=== PATIENT | female | born 1975 ===

== ENCOUNTER 2017-01-25 17:44 | Emergency (ER) | payer MEDICAID ==
[2017-01-25 18:17] VITALS: TEMP 98.2
--- NOTE | 2017-01-25 19:42 | ED PDOC ---
Arrival/HPI - General Historian: Patient - General Chief Complaint: Headache Time Seen by Provider: 01/25/17 18:50 - History of Present Illness Narrative History of Present Illness (Text): 01/25/17 19:40 Patient reports two-month history of intermittent throbbing like headache to the left side of her forehead associated with nausea, photophobia, phonophobia, which became prominent after she fell and hit her head on the same area where she complains of pain. Patient reports having similar headaches in the past and were attributed to migraine headaches however she feels that the headache she has been experiencing for the past 2 months have been more intense than her prior symptoms. Patient reports taking Advil and Tylenol with relief. Otherwise : (-) thunderclap headache, (-) worse headache of life, (-) URI symptoms, (-) vomiting, (-) fever, (-) subjective neurologic symptoms. (Fredi LÓPEZ, Ashlie Wynn) Past Medical History - Provider Review Nursing Documentation Reviewed: Yes - Infectious Disease Hx of Infectious Diseases: None - Reproductive Menopause: No - HEENT Other/Comment: head trauma 2 mos ago - Psychiatric Hx Substance Use: No - Anesthesia Hx Anesthesia: No Hx Anesthesia Reactions: No Hx Malignant Hyperthermia: No Family/Social History - Physician Review Nursing Documentation Reviewed: Yes Family/Social History: No Known Family HX Smoking Status: Current Some Days Smoker Hx Alcohol Use: Yes Frequency of alcohol use: Socially Hx Substance Use: No Allergies/Home Meds Allergies/Adverse Reactions: Allergies No Known Allergies Allergy (Verified 01/25/17 18:17) Review of Systems - Review of Systems Constitutional: Normal. absent: Fatigue, Weight Change, Fevers ENT: Normal. absent: Hearing Changes, Tinnitus, Sore Throat, Sinus Congestion Respiratory: Normal. absent: SOB, Cough, Sputum Cardiovascular: Normal. absent: Chest Pain, Palpitations Musculoskeletal: Normal. absent: Arthralgias, Back Pain, Neck Pain Skin: Normal. absent: Rash, Pruritis, Skin Lesions Neurological: Normal, Headache. absent: Dizziness, Focal Weakness Physical Exam - Physical Exam Narrative Physical Exam (Text): 01/25/17 19:42 GENERAL APPEARANCE: Patient is awake, alert, oriented x 3, smiling, in no acute distress. SKIN: Warm, dry; (-) cyanosis; (-) rash. HEAD: (-) scalp swelling or tenderness, (-) temporal artery tenderness, (+) mild tenderness to the L side of the forehead with (-) edema or ecchymosis. EYES: (-) conjunctival pallor, (-) scleral icterus. ENMT: (-) sinus tenderness; mucous membranes moist. NECK: (-) tenderness, (-) stiffness, (-) meningismus, (-) lymphadenopathy. CHEST AND RESPIRATORY: (-) rales, (-) rhonchi, (-) wheezes; breath sounds equal bilaterally. HEART AND CARDIOVASCULAR: (-) irregularity; (-) murmur, (-) gallop. ABDOMEN AND GI: Soft; (-) tenderness. EXTREMITIES: (-) deformity. NEURO AND PSYCH: Mental status as above. 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 Strength and DTRs symmetric. Babinski normal bilaterally. (Ashlie Rai PA-C) Vital Signs Temp Pulse Resp BP Pulse Ox 01/25/17 18:09 98.2 F 97 H 20 118/74 97 Medical Decision Making ED Course and Treatment: 01/25/17 19:43 41 yo F who reports a two-month history of intermittent headache which she reports is related to head trauma which she [facility]. Given naprosyn and reglan po. cg (-). Patient sent to CT. CT head : negative, with no acute findings, as per Vrad report. On reevaluation patient remains awake, alert, oriented 3, no acute distress. CT results expected to the patient in great detail. Based on history, exam and diagnostic results plan will be for outpatient follow-up with PMD. Prescription provided. Patient states she fully agrees with and understands discharge instructions. States that she agrees with the plan and disposition. Verbalized and repeated discharge instructions and plan. I have given the patient opportunity to ask any additional questions. Follow up with primary care physician in 1-2 days without fail. Advised to take medication as prescribed. Return to the emergency room at any time for any new or worsening symptoms. (Ashlie Rai PA-C) EXAM: CT Head Without Intravenous Contrast CLINICAL HISTORY: 41 years old, female; Pain; Headache; Headache not specified TECHNIQUE: Axial computed tomography images of the head/brain without intravenous contrast. This CT exam was performed using one or more of the following dose reduction techniques: automated exposure control, adjustment of the mA and/or kV according to patient size, and/or use of iterative reconstruction technique. COMPARISON: No relevant prior studies available. FINDINGS: Brain: Unremarkable. No hemorrhage. No significant white matter disease. No edema. Normal johansen white matter interfaces are present. Ventricles: Unremarkable. No ventriculomegaly. Bones/joints: Unremarkable. No acute fracture. Soft tissues: Unremarkable. Sinuses: Unremarkable as visualized. No acute sinusitis. Mastoid air cells: Unremarkable as visualized. No mastoid effusion. IMPRESSION: Normal head/brain CT. Thank you for allowing us to participate in the care of your patient. 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 Disposition/Present on Arrival - Present on Arrival Any Indicators Present on Arrival: No History of DVT/PE: No History of Uncontrolled Diabetes: No Urinary Catheter: No History of Decub. Ulcer: No History Surgical Site Infection Following: None - Disposition Have Diagnosis and Disposition been Completed?: Yes Disposition Time: 19:46 Patient Plan: Discharge - Disposition Diagnosis: Headache, Head trauma Disposition: HOME/ ROUTINE Patient Problems: Current Active Problems Problem Status Onset Head trauma Acute Headache Acute Condition: GOOD Discharge Instructions (ExitCare): Head Injury (ED), Acute Headache (ED) Print Language: IRISH Additional Instructions: Thank you for letting us take care of you today. You were treated for headache, history of head injury. The emergency medical care you received today was directed at your acute symptoms. If you were prescribed any medication, please fill it and take as directed. It may take several days for your symptoms to resolve. Return to the Emergency Department if your symptoms worsen, do not improve, or if you have any other problems. Please contact the clinic in 2 days for re-evaluation and follow up. Bring any paperwork you were given at discharge with you along with any medications you are taking to your follow up visit. Our treatment cannot replace ongoing medical care by a primary care provider (PCP) outside of the emergency department. Thank you for allowing the [facility] team to be part of your care today. Prescriptions: Metoclopramide HCl [Reglan] 10 mg PO QID PRN #20 tablet PRN Reason: Headache Naproxen 500 mg PO BID #30 tab Referrals: PCP,NO [Primary Care Provider] - Follow up with primary [facility] [Outside] - Follow up with primary
[2017-01-25] MEDS ORDERED: Naproxen 550 mg Tab PO STA (19:49)
[2017-01-25 20:09] VITALS: BP 117/77; PULSE 98; RESP 18; O2SAT 98
--- NOTE | 2017-01-26 09:01 | CT ---
PROCEDURE: CT HEAD WITHOUT CONTRAST. HISTORY: headache COMPARISON: None available. TECHNIQUE: Axial computed tomography images were obtained through the head/brain without intravenous contrast. Radiation dose: Total exam DLP = 725.84 mGy-cm. This CT exam was performed using one or more of the following dose reduction techniques: Automated exposure control, adjustment of the mA and/or kV according to patient size, and/or use of iterative reconstruction technique. FINDINGS: HEMORRHAGE: No intracranial hemorrhage. BRAIN: No mass effect or edema. No atrophy or chronic microvascular ischemic changes. VENTRICLES: Unremarkable. No hydrocephalus. CALVARIUM: Unremarkable. PARANASAL SINUSES: Unremarkable as visualized. No significant inflammatory changes. MASTOID AIR CELLS: Unremarkable as visualized. No inflammatory changes. OTHER FINDINGS: None. IMPRESSION: No evidence of acute intracranial hemorrhage intracranial collection mass effect or midline shift. Preliminary report was submitted by virtual Radiology.
== END 2017-01-25 20:12 | disposition home or self-care (01) ==
LOC: ED 17:44
DX: S09.90XA Unspecified injury of head, initial encounter (principal); W01.0XXA Fall on same level from slipping, tripping and stumbling without subsequent striking against object, initial encounter; Y92.89 Other specified places as the place of occurrence of the external cause

== ENCOUNTER 2017-04-23 17:52 | Inpatient (IN) | payer MEDICAID ==
[2017-04-23] MEDS ORDERED: Morphine 4 mg/ml ISec IVP STA (19:09)
[2017-04-23] MEDS ORDERED: Sodium Chloride 0.9% 1,000 ML IV STA (19:09)
[2017-04-23 19:57] LABS: URINE BILIRUBIN NEGATIVE (NEGATIVE); URINE BLOOD TRACE-LYSED (NEGATIVE); URINE GLUCOSE (UA) NEGATIVE (NEGATIVE); URINE LEUKOCYTE ESTERASE NEGATIVE Leu/uL (NEGATIVE); URINE NITRATE NEGATIVE (NEGATIVE); URINE PROTEIN TRACE mg/dL (<30 mg/dL); URINE UROBILINOGEN 0.2 E.U./dL (<1 E.U./dL)
[2017-04-23 19:58] LABS: BASO # 0.04 K/mm3 (0.0-2.0); BASO % 0.2 % (0.0-3.0); EOS # 0.1 (0.0-0.7); EOS % 0.6 % (1.5-5.0); GRAN # 14.09 (1.4-6.5); GRAN % 79.5 % (50.0-68.0); LYMPH # 2.3 (1.2-3.4); LYMPH % 12.7 % (22.0-35.0); MEAN CELL VOLUME 89.1 fL (80.0-105.0); MEAN CORPUSCULAR HEMOGLOBIN 30.7 pg (25.0-35.0); MEAN CORPUSCULAR HGB CONC 34.5 g/dl (31.0-37.0); MEAN PLATELET VOLUME 8.8 fl (7.0-11.0); MONO # 1.2 (0.1-0.6); PLATELET COUNT 316 10^3/uL (120.0-450.0); RBC 4.23 10^6/uL (3.5-6.1); RED CELL DISTRIBUTION WIDTH 13.7 % (11.5-14.5); WHITE BLOOD COUNT 17.7 10^3/ul (4.5-11.0)
[2017-04-23 20:01] LABS: URINE APPEARANCE SL CLOUDY (CLEAR); URINE COLOR YELLOW (YELLOW)
[2017-04-23 20:01] LABS: ALB/GLOB RATIO 1.2 (1.1-1.8); ALBUMIN 4.2 g/dL (3.0-4.8); ALT/SGPT 30 U/L (7-56); AST/SGOT 16 U/L (15-39); BLOOD UREA NITROGEN 9 mg/dL (7-21); CALCIUM 9.3 mg/dL (8.4-10.5); GFR AFRICAN-AMERICAN > 60; GFR NON-AFRICAN AMERICAN > 60; LIPASE 40 U/L (23-300)
[2017-04-23 20:02] LABS: INR 1.14 (0.93-1.08); PARTIAL THROMBOPLASTIN TIME 31.7 Seconds (23.7-30.8); PROTHROMBIN TIME 12.3 Seconds (9.9-11.8)
[2017-04-23 20:13] LABS: URINE BACTERIA MANY (NEG); URINE RBC 0 - 2 /hpf (0-2)
--- NOTE | 2017-04-23 20:26 | ED PDOC ---
Arrival/HPI - General Historian: Patient - History of Present Illness Time/Duration: Other (4 days) Symptom Course: Unchanged Quality: Other Context: Home - General Chief Complaint: Abdominal Pain Time Seen by Provider: 04/23/17 18:33 - History of Present Illness Narrative History of Present Illness (Text): 04/23/17 20:18 A 41 year old female presents to the emergency department complaining of intermittent diffuse abdominal pain for 4 days. Patient describes the pain similar to "contractions". She initially believed it was gas and took sonny seltzer, with no relief. Patient notes nausea, states she is unable to tolerate any PO intake. She reports non-bloody diarrhea since yesterday and approximately 6 episodes throughout today. Patient notes tactile fever and chills last night but denies any vomiting, urinary complaints, back pain, chest pain, shortness of breath or any other complaints. Patient states she has not experienced similar symptoms before. Patient denies any recent travel, sick contact or antibiotic use. Denies history of abdominal surgeries, endoscopies or colonoscopies. PMD: None (Fredi LÓPEZ,Ashlie Wynn) Past Medical History - Provider Review Nursing Documentation Reviewed: Yes - Infectious Disease Hx of Infectious Diseases: None - HEENT Other/Comment: head trauma 2 mos ago - Psychiatric Hx Substance Use: No - Anesthesia Hx Anesthesia: No Hx Anesthesia Reactions: No Hx Malignant Hyperthermia: No Family/Social History - Physician Review Nursing Documentation Reviewed: Yes Family/Social History: No Known Family HX Smoking Status: Current Some Days Smoker Hx Alcohol Use: Yes Hx Substance Use: No Allergies/Home Meds Allergies/Adverse Reactions: Allergies No Known Allergies Allergy (Verified 01/25/17 18:17) Home Medications: Home Meds Medication Instructions Recorded Confirmed No Known Home Med 04/23/17 04/23/17 Review of Systems - Physician Review All systems were reviewed & negative as marked: Yes - Review of Systems Constitutional: Fevers, Night Sweats Respiratory: absent: SOB Cardiovascular: absent: Chest Pain Gastrointestinal: Abdominal Pain, Diarrhea, Nausea. absent: Vomiting Genitourinary Female: absent: Dysuria, Frequency, Hematuria, Urine Output Changes Musculoskeletal: absent: Back Pain Physical Exam Vital Signs Reviewed: Yes Temperature: Afebrile Blood Pressure: Normal Pulse: Tachycardic Respiratory Rate: Normal Appearance: Positive for: Well-Appearing, Non-Toxic, Comfortable Pain Distress: Moderate Mental Status: Positive for: Alert and Oriented X 3 - Systems Exam Head: Present: Atraumatic, Normocephalic Pupils: Present: PERRL Extroacular Muscles: Present: EOMI Conjunctiva: Present: Normal Mouth: Present: Dry Neck: Present: Normal Range of Motion Respiratory/Chest: Present: Clear to Auscultation, Good Air Exchange. No: Respiratory Distress, Accessory Muscle Use Cardiovascular: Present: Regular Rate and Rhythm, Normal S1, S2. No: Murmurs Abdomen: Present: Tenderness (Moderate diffuse tenderness to palpation), Normal Bowel Sounds. No: Distention, Peritoneal Signs Back: Present: Normal Inspection Upper Extremity: Present: Normal Inspection. No: Cyanosis, Edema Lower Extremity: Present: Normal Inspection. No: Edema Neurological: Present: GCS=15, CN II-XII Intact, Speech Normal Skin: Present: Warm, Dry, Normal Color. No: Rashes Psychiatric: Present: Alert, Oriented x 3, Normal Insight, Normal Concentration Medical Decision Making Re-evaluation Time: 22:00 Reassessment Condition: Re-examined, Improving,but remains with symptoms (On re- evaluation, pt is laying in bed in no acute distress, reports improvement of pain, however pain is still present. On exam, abdomen is soft with mild diffuse abdominal tenderness, no rebound or guarding. Labs reviewed. CT results still pending. ) - Lab Interpretations I have reviewed the lab results: Yes (WBC is noted to be 17.7) ED Course and Treatment: 04/23/17 20:18 Impression: A 41 year old female with diffuse abdominal pain. Patient notes associated tactile fever, chills, nausea and diarrhea. Plan: -- Abdomen and pelvis CT -- Labs -- Urine culture and Urinalysis -- Pepcid, Morphine, Zofran and IV fluids -- Reassess and disposition Progress Notes: 04/23/17 23:30 CT results reviewed, shows +acute diverticulitis. Lab and CT results d/w the pt in great detail. Notified of need for inpt admission for IV antibiotics, which the pt agrees to, diagnosis explained to the pt. Cipro and flagyl IV ordered. Call placed to Dr Leyva, agrees with plan for inpt admission to the hospitalist. (Fredi LÓPEZ,Ashlie Wynn) 04/24/17 00:09 I was available for consultation during PA evaluation. The chart reviewed by me , and I agree with disposition. The documented history was done by the physician human performance professor. The documented physical exam was done by physician human performance professor. The documented procedures were done by physician human performance professor. (Vince Melo) - Lab Interpretations Lab Results: 04/23/17 19:46 04/23/17 19:46 Lab Results 04/23/17 19:46: Sodium 136, Potassium 4.0, Chloride 101, Carbon Dioxide 23, Anion Gap 16, BUN 9, Creatinine 0.7, Est GFR ( Amer) > 60, Est GFR (Non- Af Amer) > 60, Random Glucose 95, Calcium 9.3, Total Bilirubin 0.7, AST 16, ALT 30, Alkaline Phosphatase 68, Total Protein 7.7, Albumin 4.2, Globulin 3.6, Albumin/Globulin Ratio 1.2, Lipase 40 04/23/17 19:46: PT 12.3 H, INR 1.14 H, APTT 31.7 H 04/23/17 19:46: WBC 17.7 H, RBC 4.23, Hgb 13.0, Hct 37.7, MCV 89.1, MCH 30.7, MCHC 34.5, RDW 13.7, Plt Count 316, MPV 8.8, Gran % 79.5 H, Lymph % (Auto) 12.7 L, [place] % (Auto) 7.0 H, Eos % (Auto) 0.6 L, Baso % (Auto) 0.2, Gran # 14.09 H, Lymph # 2.3, [place] # 1.2 H, Eos # 0.1, Baso # 0.04 04/23/17 19:25: Urine Color Yellow, Urine Appearance Sl cloudy, Urine pH 7.0, Ur Specific [place] 1.020, Urine Protein Trace H, Urine Glucose (UA) Negative, Urine Ketones Trace H, Urine Blood Trace-lysed H, Urine Nitrate Negative, Urine Bilirubin Negative, Urine Urobilinogen 0.2, Ur Leukocyte Esterase Negative, Urine RBC 0 - 2, Urine WBC 1 - 3, Ur Epithelial Cells 10 - 12, Urine Bacteria Many - RAD Interpretation Narrative RAD Interpretations (Text): 04/23/17 23:51 CT ABDOMEN/PELVIS W/ IV CONTRAST: FINDINGS: Lower thorax: Mild atelectasis/scarring. ABDOMEN: Liver: Fatty infiltration. Gallbladder and bile ducts: Cholecystectomy. No ductal dilation. Pancreas: No ductal dilation. No mass. Spleen: No splenomegaly. Adrenals: No mass. Kidneys and ureters: RIGHT renal cyst. 1.2 x 1.3 x 1.3 cm lesion within RIGHT kidney, indeterminate by CT criteria. Few too small to characterize lesions within kidneys. No hydronephrosis. Stomach and bowel: Scattered diverticula within colon. Severe mural thickening short segment of proximal sigmoid colon. Moderate stranding within adjacent fat. No obstruction. Appendix: No findings to suggest acute appendicitis. PELVIS: Bladder: Unremarkable. Reproductive: 1.9 x 1.5 x 1.5 cm hypodense lesion within RIGHT ovary. 1.6 x 1.6 x 1.5 cm hypodense lesion within LEFT ovary. ABDOMEN and PELVIS: Intraperitoneal space: No significant fluid collection. No free air. Bones/joints: Degenerative changes of lower lumbar spine. No acute fracture. Soft tissues: Unremarkable. Vasculature: Mild atherosclerotic disease. No aneurysm. Lymph nodes: Several subcentimeter short axis paraaortic lymph nodes. IMPRESSION: 1. Findings compatible with acute diverticulitis of sigmoid colon. Recommend endoscopy following resolution. 2. Probable ovarian cysts. Consider ultrasound. 3. Kidney lesion, indeterminate. Recommend nonemergent ultrasound or MRI. 4. Incidental/non-acute findings are described above. (Fredi LÓPEZ,Ashlie Wynn) Radiology Orders: 04/23/17 19:11 ABD & PELVIS IV CONTRAST ONLY [CT] Stat - Medication Orders Current Medication Orders: Ciprofloxacin (Cipro 400mg/200ml Dsw) 400 mg in 200 mls @ 133.3 mls/hr IVPB STAT STA PRN Reason: Protocol Stop: 04/24/17 01:28 Metronidazole (Flagyl) 500 mg in 100 mls @ 100 mls/hr IVPB STAT STA PRN Reason: Protocol Stop: 04/24/17 00:57 Discontinued Medications Famotidine (Pepcid) 20 mg IVP STAT STA Stop: 04/23/17 19:10 Last Admin: 04/23/17 19:44 Dose: 20 mg Sodium Chloride (Sodium Chloride 0.9%) 1,000 mls @ 1,000 mls/hr IV .Q1H STA Stop: 04/23/17 20:08 Last Admin: 04/23/17 19:44 Dose: 1,000 mls/hr Iohexol (Omnipaque 350 100 Ml) Confirm Administered Dose 350 mg .ROUTE .STK-MED ONE Stop: 04/23/17 22:27 Morphine Sulfate (Morphine) 4 mg IVP STAT STA Stop: 04/23/17 19:10 Last Admin: 04/23/17 19:55 Dose: 4 mg Ondansetron HCl (Zofran Inj) 4 mg IVP STAT STA Stop: 04/23/17 19:10 Last Admin: 04/23/17 19:43 Dose: 4 mg - PA / BOTTLE CASER / Resident Statement MD/DO has reviewed & agrees with the documentation as recorded. - Scribe Statement The provider has reviewed the documentation as recorded by the Scribe - Scribe Statement Asuncion Hayden Provider Scribe Attestation: All medical record entries made by the Scribe were at my direction and personally dictated by me. I have reviewed the chart and agree that the record accurately reflects my personal performance of the history, physical exam, medical decision making, and the department course for this patient. I have also personally directed, reviewed, and agree with the discharge instructions and disposition. (Fredi LÓPEZ,Ashlie Wynn) Disposition/Present on Arrival - Present on Arrival Any Indicators Present on Arrival: No History of DVT/PE: No History of Uncontrolled Diabetes: No Urinary Catheter: No History of Decub. Ulcer: No History Surgical Site Infection Following: None - Disposition Have Diagnosis and Disposition been Completed?: Yes Disposition Time: 23:30 Patient Plan: Admission - Disposition Diagnosis: Acute diverticulitis Disposition: HOSPITALIZED Patient Problems: Current Active Problems Problem Status Onset Acute diverticulitis Acute Condition: STABLE Forms: [id number] (Arabic)
[2017-04-23] MEDS ORDERED: Iohexol 350 MG/100 ML VIAL ONE (22:26)
--- NOTE | 2017-04-23 23:46 | CT ---
EXAM: CT Abdomen and Pelvis With Intravenous Contrast CLINICAL HISTORY: 41 years old, female; Pain; Abdominal pain; Generalized; Additional info: Diffuse pain with diarrhea TECHNIQUE: Axial computed tomography images of the abdomen and pelvis with intravenous contrast. This CT exam was performed using one or more of the following dose reduction techniques: automated exposure control, adjustment of the mA and/or kV according to patient size, and/or use of iterative reconstruction technique. Coronal and sagittal reformatted images were created and reviewed. CONTRAST: 95 mL of OMNI 350 administered intravenously. COMPARISON: No relevant prior studies available. FINDINGS: Lower thorax: Mild atelectasis/scarring. ABDOMEN: Liver: Fatty infiltration. Gallbladder and bile ducts: Cholecystectomy. No ductal dilation. Pancreas: No ductal dilation. No mass. Spleen: No splenomegaly. Adrenals: No mass. Kidneys and ureters: RIGHT renal cyst. 1.2 x 1.3 x 1.3 cm lesion within RIGHT kidney, indeterminate by CT criteria. Few too small to characterize lesions within kidneys. No hydronephrosis. Stomach and bowel: Scattered diverticula within colon. Severe mural thickening short segment of proximal sigmoid colon. Moderate stranding within adjacent fat. No obstruction. Appendix: No findings to suggest acute appendicitis. PELVIS: Bladder: Unremarkable. Reproductive: 1.9 x 1.5 x 1.5 cm hypodense lesion within RIGHT ovary. 1.6 x 1.6 x 1.5 cm hypodense lesion within LEFT ovary. ABDOMEN and PELVIS: Intraperitoneal space: No significant fluid collection. No free air. Bones/joints: Degenerative changes of lower lumbar spine. No acute fracture. Soft tissues: Unremarkable. Vasculature: Mild atherosclerotic disease. No aneurysm. Lymph nodes: Several subcentimeter short axis paraaortic lymph nodes. IMPRESSION: 1. Findings compatible with acute diverticulitis of sigmoid colon. Recommend endoscopy following resolution. 2. Probable ovarian cysts. Consider ultrasound. 3. Kidney lesion, indeterminate. Recommend nonemergent ultrasound or MRI. 4. Incidental/non-acute findings are described above.
[2017-04-23] MEDS ORDERED: metroNIDAZOLE IV 500 mg/100 ml 500 MG/100 ML BAG IVPB STA (23:58)
[2017-04-23] MEDS ORDERED: Ciprofloxacin 400mg/200ml D5W 400 MG/200 ML BAG IVPB STA (23:58)
[2017-04-24] MEDS ORDERED: Morphine 2 mg/ml ISec IVP PRN (00:22)
[2017-04-24] MEDS ORDERED: Morphine 4 mg/ml ISec IVP PRN (00:22)
--- NOTE | 2017-04-24 00:41 | CP.PCM.HP ---
<PAULSAMANTA - Last Filed: 04/24/17 01:02> History of Present Illness - History of Present Illness History of Present Illness: CC: Diffuse Abdominal Pain HPI: Mrs. Guzman is a 41 year old female with a past medical history significant for cholecystectomy who presented to the ED complaining of constant diffuse abdominal pain since Thursday afternoon. Patient describes the pain as being similar to "contractions" and reports that it does not radiate. She rates it as a 10/10 on pain scale and reports no alleviating or aggravating factors. She initially believed it was gas and took one sonny seltzer with no relief. Patient notes nausea and states that while she can tolerate PO intake, she has lost her appetite due to the pain. She reports non-bloody diarrhea since yesterday and approximately 6 episodes throughout today. Patient also notes one episode of subjective fever and chills last night. A CT abd/pelvis in the ED showed diverticulitis of the sigmoid colon and ovarian cysts. Currently, patient states that her pain is unchanged in quality or intensity and writhes in pain during examination. She denies any headache, dizziness, changes in vision, chest pain, SOB, vomiting, constipation, urinary symptoms, or any other complaints at this time. PMH: "Issues with gallbladder" PSH: Cholecystectomy approx. 10 years ago Family History: DM in "almost everyone"; none other reported Social History: Current smoker with 20 year pack history, reports social alcohol and occasional marijuana use LMP: April 09, 2017 Allergies: NKDA Home Meds: Advil PRN Present on Admission - Present on Admission Any Indicators Present on Admission: No Review of Systems - Review of Systems Review of Systems: Please refer to HPI Past Patient History - Infectious Disease Hx of Infectious Diseases: None - Past Social History Smoking Status: Current Some Days Smoker - HEENT Other/Comment: head trauma 2 mos ago - PSYCHIATRIC Hx Substance Use: No - SURGICAL HISTORY Hx Surgeries: No - ANESTHESIA Hx Anesthesia: No Hx Anesthesia Reactions: No Hx Malignant Hyperthermia: No Meds Allergies/Adverse Reactions: Allergies Allergy/AdvReac Type Severity Reaction Status Date / Time No Known Allergies Allergy Verified 01/25/17 18:17 Physical Exam - Constitutional Appears: In Acute Distress - Head Exam Head Exam: NORMAL INSPECTION, NORMOCEPHALIC - Eye Exam Eye Exam: EOMI, Normal appearance - ENT Exam ENT Exam: Mucous Membranes Moist, Normal Exam - Neck Exam Neck exam: Positive for: Full Rom. Negative for: Tenderness - Respiratory Exam Respiratory Exam: Clear to Auscultation Bilateral, NORMAL BREATHING PATTERN. absent: Rales, Rhonchi, Wheezes, Respiratory Distress - Cardiovascular Exam Cardiovascular Exam: Tachycardia, REGULAR RHYTHM, +S1, +S2 - GI/Abdominal Exam GI & Abdominal Exam: Normal Bowel Sounds, Tenderness. absent: Distended, Firm, Guarding Additional comments: Diffuse pain in all lower quadrants - Extremities Exam Extremities exam: Positive for: normal capillary refill, pedal pulses present. Negative for: calf tenderness, pedal edema - Neurological Exam Neurological exam: Alert, Oriented x3 - Psychiatric Exam Psychiatric exam: Normal Affect, Normal Mood - Skin Skin Exam: Dry, Intact, Normal Color, Warm Results - Vital Signs Recent Vital Signs: Last Vital Signs Temp 99.3 F 04/23/17 18:12 Pulse 112 H 04/23/17 18:12 Resp 20 04/23/17 18:12 BP 131/84 04/23/17 18:12 Pulse Ox 96 04/23/17 18:12 - Labs Result Diagrams: 04/23/17 19:46 04/23/17 19:46 Assessment & Plan - Assessment and Plan (Free Text) Assessment: 41 year old female with a past medical history significant for cholecystectomy who presented to the ED complaining of constant diffuse abdominal pain since Thursday afternoon. Plan: 1. Diverticulitis of Sigmoid Colon -CT Abd/Pelivs showed diverticulitis of sigmoid colon -Tachycardia (112) and Leukocytosis (17.7); currently afebrile and normotensive -started on cipro/flagyl -IVF: NS at 100mls/hr -Morphine 2mg Q3H PRN for moderate pain -Morphine 4mg Q3H PRN for severe pain -NPO diet overnight; will advance as tolerated with anticipation for CLD later in AM 2. GI/DVT Prophylaxis -Protonix/Heparin Patient seen and case discussed with attending, Dr. Leyva. - Date & Time Date: 04/24/17 Time: 12:35 <Robbie Leyva - Last Filed: 04/24/17 06:52> Results - Vital Signs Recent Vital Signs: Last Vital Signs Temp 98.3 F 04/24/17 02:17 Pulse 96 H 04/24/17 02:17 Resp 20 04/24/17 02:17 BP 123/74 04/24/17 02:17 Pulse Ox 99 04/24/17 00:20 - Labs Result Diagrams: 04/23/17 19:46 04/23/17 19:46 Attending/Attestation - Attestation I have personally seen and examined this patient.: Yes I have fully participated in the care of the patient.: Yes I have reviewed all pertinent clinical information: Yes
[2017-04-24] MEDS: Sodium Chloride 0.9% 1,000 ML IV SCH ×2 (02:26→21:34)
[2017-04-24 03:43] VITALS: RESP 20
[2017-04-24] MEDS: metroNIDAZOLE IV 500 mg/100 ml 500 MG/100 ML BAG IVPB SCH ×3 (05:50→21:48)
[2017-04-24] MEDS: Pantoprazole 20 mg EC Tab PO SCH (05:55)
[2017-04-24 07:39] LABS: BASO # 0.03 K/mm3 (0.0-2.0); BASO % 0.2 % (0.0-3.0); EOS # 0.1 (0.0-0.7); EOS % 0.5 % (1.5-5.0); GRAN # 10.92 (1.4-6.5); GRAN % 78.7 % (50.0-68.0); HEMOGLOBIN 11.8 gm/dL (12.0-16.0); LYMPH % 14.3 % (22.0-35.0); MEAN CELL VOLUME 88.7 fL (80.0-105.0); MEAN CORPUSCULAR HEMOGLOBIN 30.2 pg (25.0-35.0); MEAN PLATELET VOLUME 9.2 fl (7.0-11.0); MONO # 0.9 (0.1-0.6); MONO % 6.3 % (1.0-6.0); PLATELET COUNT 321 10^3/uL (120.0-450.0); RBC 3.91 10^6/uL (3.5-6.1); RED CELL DISTRIBUTION WIDTH 13.8 % (11.5-14.5); WHITE BLOOD COUNT 13.9 10^3/ul (4.5-11.0)
[2017-04-24 08:00] LABS: BLOOD UREA NITROGEN 7 mg/dL (7-21); CALCIUM 8.8 mg/dL (8.4-10.5); GFR AFRICAN-AMERICAN > 60; GFR NON-AFRICAN AMERICAN > 60
[2017-04-24] MEDS: levoFLOXacin 500 mg in D5W 500 MG/100 ML BAG IVPB SCH (11:46)
[2017-04-24] MEDS ORDERED: Potassium Chloride 40 mEq/30 ml LIQ UD PO ONE ×2 (16:10→21:00)
[2017-04-25] MEDS: metroNIDAZOLE IV 500 mg/100 ml 500 MG/100 ML BAG IVPB SCH (05:57)
[2017-04-25] MEDS: Pantoprazole 20 mg EC Tab PO SCH (05:57)
[2017-04-25 07:52] LABS: HEMOGLOBIN 10.2 gm/dL (12.0-16.0); MEAN CORPUSCULAR HGB CONC 33.3 g/dl (31.0-37.0); MEAN PLATELET VOLUME 8.8 fl (7.0-11.0); PLATELET COUNT 274 10^3/uL (120.0-450.0); RED CELL DISTRIBUTION WIDTH 13.7 % (11.5-14.5); WHITE BLOOD COUNT 7.8 10^3/ul (4.5-11.0)
[2017-04-25 08:15] VITALS: BP 133/86; PULSE 76; TEMP 97.7; O2SAT 97
[2017-04-25 09:10] LABS: NEUTROPHIL 68 % (50.0-70.0)
[2017-04-25 09:11] LABS: LYMPHOCYTE 30 % (22.0-35.0); MONOCYTE 2 % (1.0-6.0); PLATELET ESTIMATE NORMAL (NORMAL)
[2017-04-25] MEDS: levoFLOXacin 500 mg in D5W 500 MG/100 ML BAG IVPB SCH (09:33)
[2017-04-25] MEDS: Sodium Chloride 0.9% 1,000 ML IV SCH (09:35)
[2017-04-25 09:51] LABS: BLOOD UREA NITROGEN 9 mg/dL (7-21); CALCIUM 8.6 mg/dL (8.4-10.5); GFR AFRICAN-AMERICAN > 60; GFR NON-AFRICAN AMERICAN > 60
--- NOTE | 2017-04-25 15:59 | CP.PCM.DIS ---
<Rajeev Stanton - Last Filed: 04/25/17 15:54> Provider - Provider Date of Admission: 04/24/17 00:06 Attending physician: Jeevan Fox MD Primary care physician: None. Plan to follow up with [facility] in [place] Time Spent in preparation of Discharge (in minutes): 30 Diagnosis - Discharge Diagnosis (1) Acute diverticulitis Status: Acute Hospital Course - Lab Results Lab Results: Most Recent Lab Values WBC 7.8 10^3/ul (4.5-11.0) D 04/25/17 07:42 RBC 3.40 10^6/uL (3.5-6.1) L 04/25/17 07:42 Hgb 10.2 gm/dL (12.0-16.0) L 04/25/17 07:42 Hct 30.6 % (36.0-48.0) L 04/25/17 07:42 MCV 90.0 fL (80.0-105.0) 04/25/17 07:42 MCH 30.0 pg (25.0-35.0) 04/25/17 07:42 MCHC 33.3 g/dl (31.0-37.0) 04/25/17 07:42 RDW 13.7 % (11.5-14.5) 04/25/17 07:42 Plt Count 274 10^3/uL (120.0-450.0) 04/25/17 07:42 MPV 8.8 fl (7.0-11.0) 04/25/17 07:42 Gran % 78.7 % (50.0-68.0) H 04/24/17 07:00 Lymph % (Auto) 14.3 % (22.0-35.0) L 04/24/17 07:00 Nicholas % (Auto) 6.3 % (1.0-6.0) H 04/24/17 07:00 Eos % (Auto) 0.5 % (1.5-5.0) L 04/24/17 07:00 Baso % (Auto) 0.2 % (0.0-3.0) 04/24/17 07:00 Gran # 10.92 (1.4-6.5) H 04/24/17 07:00 Lymph # 2.0 (1.2-3.4) 04/24/17 07:00 Nicholas # 0.9 (0.1-0.6) H 04/24/17 07:00 Eos # 0.1 (0.0-0.7) 04/24/17 07:00 Baso # 0.03 K/mm3 (0.0-2.0) 04/24/17 07:00 Neutrophils % (Manual) 68 % (50.0-70.0) 04/25/17 07:42 Lymphocytes % (Manual) 30 % (22.0-35.0) 04/25/17 07:42 Monocytes % (Manual) 2 % (1.0-6.0) 04/25/17 07:42 Platelet Evaluation Normal (NORMAL) 04/25/17 07:42 PT 12.3 Seconds (9.9-11.8) H 04/23/17 19:46 INR 1.14 (0.93-1.08) H 04/23/17 19:46 APTT 31.7 Seconds (23.7-30.8) H 04/23/17 19:46 Sodium 139 mmol/L (132-148) 04/25/17 07:42 Potassium 4.0 mmol/L (3.6-5.0) 04/25/17 07:42 Chloride 106 mmol/L (98-107) 04/25/17 07:42 Carbon Dioxide 23 mmol/L (21-33) 04/25/17 07:42 Anion Gap 14 (10-20) 04/25/17 07:42 BUN 9 mg/dL (7-21) 04/25/17 07:42 Creatinine 0.6 mg/dL (0.5-1.4) 04/25/17 07:42 Est GFR ( Amer) > 60 04/25/17 07:42 Est GFR (Non-Af Amer) > 60 04/25/17 07:42 Random Glucose 98 mg/dL (70-110) 04/25/17 07:42 Calcium 8.6 mg/dL (8.4-10.5) 04/25/17 07:42 Total Bilirubin 0.7 mg/dL (0.2-1.3) 04/23/17 19:46 AST 16 U/L (15-39) 04/23/17 19:46 ALT 30 U/L (7-56) 04/23/17 19:46 Alkaline Phosphatase 68 U/L (38-133) 04/23/17 19:46 Total Protein 7.7 g/dL (5.8-8.3) 04/23/17 19:46 Albumin 4.2 g/dL (3.0-4.8) 04/23/17 19:46 Globulin 3.6 gm/dL 04/23/17 19:46 Albumin/Globulin Ratio 1.2 (1.1-1.8) 04/23/17 19:46 Lipase 40 U/L (23-300) 04/23/17 19:46 Urine Color Yellow (YELLOW) 04/23/17 19:25 Urine Appearance Sl cloudy (CLEAR) 04/23/17 19:25 Urine pH 7.0 (4.7-8.0) 04/23/17 19:25 Ur Specific [place] 1.020 (1.005-1.035) 04/23/17 19:25 Urine Protein Trace mg/dL (<30 mg/dL) H 04/23/17 19:25 Urine Glucose (UA) Negative mg/dL (NEGATIVE) 04/23/17 19:25 Urine Ketones Trace mg/dL (NEGATIVE) H 04/23/17 19:25 Urine Blood Trace-lysed (NEGATIVE) H 04/23/17 19:25 Urine Nitrate Negative (NEGATIVE) 04/23/17 19:25 Urine Bilirubin Negative (NEGATIVE) 04/23/17 19:25 Urine Urobilinogen 0.2 E.U./dL (<1 E.U./dL) 04/23/17 19:25 Ur Leukocyte Esterase Negative Memo/uL (NEGATIVE) 04/23/17 19:25 Urine RBC 0 - 2 /hpf (0-2) 04/23/17 19:25 Urine WBC 1 - 3 /hpf (0-6) 04/23/17 19:25 Ur Epithelial Cells 10 - 12 /hpf (0-5) 04/23/17 19:25 Urine Bacteria Many (NEG) 04/23/17 19:25 - Hospital Course Hospital Course: The patient is a 41 year old female with a past medical history significant for cholecystectomy, presented to the ED complaining of constant diffuse abdominal pain for 3 days. She described the pain as being similar to "contractions" and reported that it does not radiate. Associated symptoms were nausea, non-bloody diarrhea, loss of appetite, subjective fever and chills. A CT abd/pelvis in the ED showed diverticulitis of the sigmoid colon and ovarian cysts. She was admitted to the floors and throughout her stay she was placed on Flagyl and levofloxacin, and morphine PRN for pain. Patient initially NPO with subsequential toleration of liquid and then regular diet. Patient was given information regarding follow up with [facility] in [place] and educated on the importance of appropriate follow up and compliance with prescribed medication. Patient remained afebrile and was noted to have positive response to antibiotic therapy. Patient was evaluated and assessed to be hemodynamically stable and able to tolerate food by mouth and was discharged for outpatient follow up. - Date & Time of H&P Date of H&P: 04/24/17 Time of H&P: 00:30 Discharge Exam - Head Exam Head Exam: ATRAUMATIC, NORMAL INSPECTION, NORMOCEPHALIC - Eye Exam Eye Exam: EOMI, PERRL - ENT Exam ENT Exam: Mucous Membranes Moist, Normal Exam - Respiratory Exam Respiratory Exam: Clear to PA & Lateral, NORMAL BREATHING PATTERN, UNREMARKABLE - Cardiovascular Exam Cardiovascular Exam: REGULAR RHYTHM, +S1, +S2 - GI/Abdominal Exam GI & Abdominal Exam: Normal Bowel Sounds, Soft, Unremarkable. absent: Guarding , Rigid, Tenderness - Extremities Exam Extremities exam: full ROM, pedal pulses present - Neurological Exam Neurological exam: Alert, CN II-XII Intact, Normal Gait, Oriented x3, Reflexes Normal - Psychiatric Exam Psychiatric exam: Normal Affect, Normal Mood - Skin Skin Exam: Dry, Normal Color, Warm Discharge Plan - Discharge Medications Prescriptions: Ciprofloxacin HCl [Cipro] 500 mg PO BID #14 tablet Metronidazole [Flagyl] 500 mg PO TID #21 tablet - Follow Up Plan Condition: STABLE Disposition: HOME/ ROUTINE Instructions: Diverticulitis (GEN), Cigarette Smoking and Your Health (GEN) Additional Instructions: 1. Follow up with PMD in 1 week. 2. Follow up with GI after 8 weeks. Might need colonoscopy as outpatient. 3. Avoid constipation. 4. High fiber diet. <Jeevan Fox - Last Filed: 04/25/17 16:32> Provider - Provider Date of Admission: 04/24/17 00:06 Attending physician: Jeevan Fox MD Hospital Course - Lab Results Lab Results: Most Recent Lab Values WBC 7.8 10^3/ul (4.5-11.0) D 04/25/17 07:42 RBC 3.40 10^6/uL (3.5-6.1) L 04/25/17 07:42 Hgb 10.2 gm/dL (12.0-16.0) L 04/25/17 07:42 Hct 30.6 % (36.0-48.0) L 04/25/17 07:42 MCV 90.0 fL (80.0-105.0) 04/25/17 07:42 MCH 30.0 pg (25.0-35.0) 04/25/17 07:42 MCHC 33.3 g/dl (31.0-37.0) 04/25/17 07:42 RDW 13.7 % (11.5-14.5) 04/25/17 07:42 Plt Count 274 10^3/uL (120.0-450.0) 04/25/17 07:42 MPV 8.8 fl (7.0-11.0) 04/25/17 07:42 Gran % 78.7 % (50.0-68.0) H 04/24/17 07:00 Lymph % (Auto) 14.3 % (22.0-35.0) L 04/24/17 07:00 Nicholas % (Auto) 6.3 % (1.0-6.0) H 04/24/17 07:00 Eos % (Auto) 0.5 % (1.5-5.0) L 04/24/17 07:00 Baso % (Auto) 0.2 % (0.0-3.0) 04/24/17 07:00 Gran # 10.92 (1.4-6.5) H 04/24/17 07:00 Lymph # 2.0 (1.2-3.4) 04/24/17 07:00 Nicholas # 0.9 (0.1-0.6) H 04/24/17 07:00 Eos # 0.1 (0.0-0.7) 04/24/17 07:00 Baso # 0.03 K/mm3 (0.0-2.0) 04/24/17 07:00 Neutrophils % (Manual) 68 % (50.0-70.0) 04/25/17 07:42 Lymphocytes % (Manual) 30 % (22.0-35.0) 04/25/17 07:42 Monocytes % (Manual) 2 % (1.0-6.0) 04/25/17 07:42 Platelet Evaluation Normal (NORMAL) 04/25/17 07:42 PT 12.3 Seconds (9.9-11.8) H 04/23/17 19:46 INR 1.14 (0.93-1.08) H 04/23/17 19:46 APTT 31.7 Seconds (23.7-30.8) H 04/23/17 19:46 Sodium 139 mmol/L (132-148) 04/25/17 07:42 Potassium 4.0 mmol/L (3.6-5.0) 04/25/17 07:42 Chloride 106 mmol/L (98-107) 04/25/17 07:42 Carbon Dioxide 23 mmol/L (21-33) 04/25/17 07:42 Anion Gap 14 (10-20) 04/25/17 07:42 BUN 9 mg/dL (7-21) 04/25/17 07:42 Creatinine 0.6 mg/dL (0.5-1.4) 04/25/17 07:42 Est GFR ( Amer) > 60 04/25/17 07:42 Est GFR (Non-Af Amer) > 60 04/25/17 07:42 Random Glucose 98 mg/dL (70-110) 04/25/17 07:42 Calcium 8.6 mg/dL (8.4-10.5) 04/25/17 07:42 Total Bilirubin 0.7 mg/dL (0.2-1.3) 04/23/17 19:46 AST 16 U/L (15-39) 04/23/17 19:46 ALT 30 U/L (7-56) 04/23/17 19:46 Alkaline Phosphatase 68 U/L (38-133) 04/23/17 19:46 Total Protein 7.7 g/dL (5.8-8.3) 04/23/17 19:46 Albumin 4.2 g/dL (3.0-4.8) 04/23/17 19:46 Globulin 3.6 gm/dL 04/23/17 19:46 Albumin/Globulin Ratio 1.2 (1.1-1.8) 04/23/17 19:46 Lipase 40 U/L (23-300) 04/23/17 19:46 Urine Color Yellow (YELLOW) 04/23/17 19:25 Urine Appearance Sl cloudy (CLEAR) 04/23/17 19:25 Urine pH 7.0 (4.7-8.0) 04/23/17 19:25 Ur Specific [place] 1.020 (1.005-1.035) 04/23/17 19:25 Urine Protein Trace mg/dL (<30 mg/dL) H 04/23/17 19:25 Urine Glucose (UA) Negative mg/dL (NEGATIVE) 04/23/17 19:25 Urine Ketones Trace mg/dL (NEGATIVE) H 04/23/17 19:25 Urine Blood Trace-lysed (NEGATIVE) H 04/23/17 19:25 Urine Nitrate Negative (NEGATIVE) 04/23/17 19:25 Urine Bilirubin Negative (NEGATIVE) 04/23/17 19:25 Urine Urobilinogen 0.2 E.U./dL (<1 E.U./dL) 04/23/17 19:25 Ur Leukocyte Esterase Negative Memo/uL (NEGATIVE) 04/23/17 19:25 Urine RBC 0 - 2 /hpf (0-2) 04/23/17 19:25 Urine WBC 1 - 3 /hpf (0-6) 04/23/17 19:25 Ur Epithelial Cells 10 - 12 /hpf (0-5) 04/23/17 19:25 Urine Bacteria Many (NEG) 04/23/17 19:25 Attending/Attestation - Attestation I have personally seen and examined this patient.: Yes I have fully participated in the care of the patient.: Yes I have reviewed all pertinent clinical information, including history, physical exam and plan: Yes Notes (Text): 04/25/17 16:30 attending note; Patient seen and examined with resident. Patient is a 41-year-old female admitted with acute sigmoid diverticulitis. Treated with IV fluids and IV cipro and Flagyl. Currently abdominal pain is resolved. Tolerating diet well. Patient will be discharged home with po Cipro and Flagyl. Needs outpatient GI evaluation. advised to follow-up with [facility] after completing [facility] care paperwork. Diagnosis; Acute diverticulitis
== END 2017-04-25 15:42 | disposition home or self-care (01) | DRG 183 ==
LOC: ED 17:52 → ERH 04-24 00:06 → 5RSO 04-24 02:15
PROVIDERS: ADMIT Internal Medicine; ATTEND Internal Medicine
DX: K57.32 Diverticulitis of large intestine without perforation or abscess without bleeding (principal); F17.210 Nicotine dependence, cigarettes, uncomplicated; F12.90 Cannabis use, unspecified, uncomplicated; Z90.49 Acquired absence of other specified parts of digestive tract